=== PATIENT | female | born 1975 | race Two or more races ===

== ENCOUNTER 2019-02-20 05:54 | Day surgery (SDC) | payer OTHER | END 2019-02-20 10:01 | disposition home or self-care (01) | LOC: AMB-ENDOS 05:54 | DX: K64.0 First degree hemorrhoids (principal); R19.4 Change in bowel habit; Z85.038 Personal history of other malignant neoplasm of large intestine ==

== ENCOUNTER 2020-06-24 06:00 | Day surgery (SDC) | payer OTHER | END 2020-06-24 09:30 | disposition home or self-care (01) | LOC: AMB-ENDOS 06:00 | PROVIDERS: ATTEND Surgery | DX: K62.89 Other specified diseases of anus and rectum (principal); K64.8 Other hemorrhoids; Z20.828 Contact with and (suspected) exposure to other viral communicable diseases ==

== ENCOUNTER 2021-08-04 06:00 | Day surgery (SDC) | payer OTHER | END 2021-08-04 09:45 | disposition home or self-care (01) | LOC: AMB-ENDOS 06:00 | PROVIDERS: ATTEND Surgery | DX: K62.89 Other specified diseases of anus and rectum (principal); K64.8 Other hemorrhoids; Z20.822 Contact with and (suspected) exposure to COVID-19 ==